=== PATIENT | male | born 1955 | race Two or more races ===

== ENCOUNTER 2018-12-21 11:54 | Inpatient (IN) | payer MEDICAID ==
[~2018-12-21] VITALS: Ht 172.7 cm; Wt 86.6 kg
[2018-12-21] MEDS ORDERED: KETOROLAC 30MG/ML VIAL IV STA (12:35)
[2018-12-21] MEDS ORDERED: LIDOCAINE HCL 1% 20ML VIAL (Pyxis) INJ INFIL ONE (12:45)
[2018-12-21] MEDS ORDERED: TETANUS, DIPHTHERIA, PERTUSSIS VAC/PF 0.5ML (>7YR OLD) IM ONE (12:45)
[2018-12-21 12:54] LABS: HEMOGLOBIN. 13.3 g/dL (14.0-18.0); MEAN CORPUSCULAR HEMOGLOBIN 28.8 pg (28.0-32.0); MEAN CORPUSCULAR VOLUME 88.4 fL (80.0-94.0); MEAN PLATELET VOLUME 9.1 fl (7.4-10.4); PLATELET 204 x1000/uL (130-400); RED BLOOD CELL COUNT 4.63 mill/uL (4.7-6.1); RED CELL DISTRIBUTION WIDTH 14.8 % (11.6-14.6)
[2018-12-21 13:01] LABS: CHLORIDE 104 mEq/L (98-107)
[2018-12-21 13:04] LABS: PROTHROMBIN TIME 10.2 sec (9.6-11.0)
[2018-12-21 13:05] LABS: ETHANOL BLOOD < 10 mg/dL
[2018-12-21 13:33] LABS: PLATELET ESTIMATE NORMAL
[2018-12-21] MEDS ORDERED: VANCOMYCIN 1 G PREMIX 200 ML IV SCH ×2 (15:30→20:30)
[2018-12-21] MEDS ORDERED: LIDOCAINE HCL 2% JELLY 5ML TOP ONE (15:45)
[2018-12-21] MEDS ORDERED: SILVER SULFADIAZINE 1% CREAM 25GM TOP ONE (15:45)
[2018-12-21] MEDS ORDERED: GUAIFENESIN 200MG/10ML SUGAR FREE UDC PO PRN (20:30)
[2018-12-21] MEDS ORDERED: MAGNESIUM/ALUMINUM HYDROXIDE/SIMETHICONE 30ML UDC PO PRN (20:30)
[2018-12-21] MEDS ORDERED: ONDANSETRON HCL 4MG/2ML INJ IV PRN (20:30)
[2018-12-21] MEDS ORDERED: DIPHENHYDRAMINE 50MG/ML VIAL IV PRN (20:30)
[2018-12-21] MEDS ORDERED: ACETAMINOPHEN 325MG TABLET PO PRN (20:30)
[2018-12-21 21:07] VITALS: BP 129/54
[2018-12-22 00:24] VITALS: BP 115/55
[2018-12-22] MEDS: SODIUM CHLORIDE 0.9% INJ 3ML FLUSH IVF SCH ×2 (00:31→05:16)
[2018-12-22 04:00] VITALS: BP 98/51
[2018-12-22] MEDS ORDERED: VANCOMYCIN 750 MG PREMIX 150 ML IV SCH (04:00)
[2018-12-22 08:00] VITALS: BP 115/61
[2018-12-22] MEDS: KETOROLAC 30MG/ML VIAL IV PRN (09:00)
[2018-12-22 12:00] VITALS: BP 101/50
[2018-12-22] MEDS ORDERED: PNEUMOCOCCAL 23-VAL P-SAC VAC 0.5 ML IM ONE (12:00)
[2018-12-22 16:00] VITALS: BP 115/70
[2018-12-22] MEDS: VANCOMYCIN 750 MG PREMIX 150 ML IV SCH (17:27)
[2018-12-22 20:00] VITALS: BP 120/63
[2018-12-22] MEDS: NEOMY SULF/BACITRAC ZN/POLY OINT 28GM TOP SCH (21:23)
[2018-12-23] VITALS: BP 118/65
[2018-12-23 04:00] VITALS: BP 146/65
[2018-12-23 05:48] LABS: HEMOGLOBIN. 12.2 g/dL (14.0-18.0); MEAN CORPUSCULAR HEMOGLOBIN 28.8 pg (28.0-32.0); MEAN CORPUSCULAR VOLUME 87.6 fL (80.0-94.0); MEAN PLATELET VOLUME 10.2 fl (7.4-10.4); PLATELET 199 x1000/uL (130-400); RED BLOOD CELL COUNT 4.23 mill/uL (4.7-6.1); RED CELL DISTRIBUTION WIDTH 14.7 % (11.6-14.6)
[2018-12-23] MEDS: VANCOMYCIN 750 MG PREMIX 150 ML IV SCH (05:57)
[2018-12-23 06:00] LABS: CHLORIDE 109 mEq/L (98-107)
[2018-12-23 06:12] LABS: VANCOMYCIN TROUGH 8.3 ug/mL (5.0-10.0)
[2018-12-23 08:00] VITALS: BP 111/57
[2018-12-23 10:12] LABS: PLATELET ESTIMATE NORMAL
[2018-12-23] MEDS: NEOMY SULF/BACITRAC ZN/POLY OINT 28GM TOP SCH ×2 (10:13→20:54)
[2018-12-23 12:00] VITALS: BP 122/62
[2018-12-23] MEDS: SODIUM CHLORIDE 0.9% INJ 3ML FLUSH IVF SCH ×2 (14:00→20:54)
[2018-12-23 16:00] VITALS: BP 130/63
[2018-12-23 20:00] VITALS: BP 116/52
[2018-12-23] MEDS: VANCOMYCIN 1 G PREMIX 200 ML IV SCH (20:54)
[2018-12-24] VITALS: BP 110/56
[2018-12-24 04:00] VITALS: BP 116/64
[2018-12-24] MEDS: SODIUM CHLORIDE 0.9% INJ 3ML FLUSH IVF SCH ×3 (06:23→23:27)
[2018-12-24 08:00] VITALS: BP 116/61
[2018-12-24] MEDS: KETOROLAC 30MG/ML VIAL IV PRN (08:11)
[2018-12-24] MEDS: VANCOMYCIN 1 G PREMIX 200 ML IV SCH ×2 (08:11→21:07)
[2018-12-24] MEDS: NEOMY SULF/BACITRAC ZN/POLY OINT 28GM TOP SCH ×2 (08:12→23:39)
[2018-12-24 12:00] VITALS: BP 118/56
[2018-12-24] MEDS ORDERED: TETANUS, DIPHTHERIA, PERTUSSIS VAC/PF 0.5ML (>7YR OLD) IM ONE (15:00)
[2018-12-24 16:00] VITALS: BP 112/57
[2018-12-24 20:00] VITALS: BP 129/70
[2018-12-25] VITALS: BP 120/63
[2018-12-25 04:00] VITALS: BP 107/50
[2018-12-25] MEDS: KETOROLAC 30MG/ML VIAL IV PRN (05:15)
[2018-12-25] MEDS: SODIUM CHLORIDE 0.9% INJ 3ML FLUSH IVF SCH (05:15)
[2018-12-25 07:25] LABS: BASOPHILS % 0.5 % (0.0-2.0); EOSINOPHILS % 4.6 % (0.0-5.0); HEMATOCRIT. 42.1 % (42.0-52.0); HEMOGLOBIN. 13.6 g/dL (14.0-18.0); LYMPHOCYTES % 18.8 % (20.0-50.0); MEAN CORPUSCULAR HEMOGLOBIN 28.1 pg (28.0-32.0); MEAN CORPUSCULAR VOLUME 87.3 fL (80.0-94.0); MEAN PLATELET VOLUME 9.4 fl (7.4-10.4); MONOCYTES % 14.6 % (2.0-8.0); NEUTROPHILS % 61.5 % (40.0-76.0); PLATELET 293 x1000/uL (130-400); RED BLOOD CELL COUNT 4.82 mill/uL (4.7-6.1); RED CELL DISTRIBUTION WIDTH 14.5 % (11.6-14.6)
[2018-12-25 07:33] LABS: CHLORIDE 110 mEq/L (98-107)
[2018-12-25 08:00] VITALS: BP 115/61
[2018-12-25] MEDS: NEOMY SULF/BACITRAC ZN/POLY OINT 28GM TOP SCH ×2 (09:53→21:00)
[2018-12-25] MEDS: VANCOMYCIN 1 G PREMIX 200 ML IV SCH (09:54)
[2018-12-25 12:00] VITALS: BP 131/78
[2018-12-25] MEDS: SULFAMETHOXAZOLE/TRIMETHOPRIM 800/160MG TABLET PO SCH ×2 (13:46→21:00)
[2018-12-25 20:00] VITALS: BP 130/74
[2018-12-26] VITALS: BP 121/66
[2018-12-26 04:00] VITALS: BP 129/70
[2018-12-26 08:00] VITALS: BP 96/40
[2018-12-26] MEDS: NEOMY SULF/BACITRAC ZN/POLY OINT 28GM TOP SCH (09:37)
[2018-12-26] MEDS: SULFAMETHOXAZOLE/TRIMETHOPRIM 800/160MG TABLET PO SCH (09:37)
[2018-12-26 12:00] VITALS: BP 120/59
[2018-12-26 16:00] VITALS: BP 115/72
[2018-12-26 17:38] VITALS: BP 124/68
== END 2018-12-26 19:05 | DRG 361 ==
LOC: ER 11:54 → 6EST 16:58 → ENRESERV 20:14
PROVIDERS: ADMIT Internal Medicine; ATTEND Internal Medicine
PROC: 0HBGXZZ Excision of Left Hand Skin, External Approach (ICD-10-PCS; principal; 2018-12-21)
DX: L03.114 Cellulitis of left upper limb (principal); D64.9 Anemia, unspecified; L02.01 Cutaneous abscess of face; L02.512 Cutaneous abscess of left hand; Z59.0 Homelessness; Z72.0 Tobacco use; Z75.1 Person awaiting admission to adequate facility elsewhere
CPT/HCPCS: 36415; 71045; 80048; 80202; 80320; 83880; 84134; 90471; 90715; 90732; 93005; 96374; 99285; J1885; J3370; J3490; G0480